=== PATIENT | female | born 1945 | race African-American/Black ===

== ENCOUNTER 2016-08-14 15:31 | Outpatient (CLI) | payer MEDICARE ==
[2016-08-14 17:39] LABS: Hemoglobin A1c 5.3 % (4.0-6.0)
[2016-08-14 17:47] LABS: Prothrombin Time 24.8 SEC (12.0-14.7)
== END 2016-08-14 15:32 | disposition home or self-care (01) ==
LOC: NAV LABSP 15:31
DX: I50.9 Heart failure, unspecified (principal); E11.9 Type 2 diabetes mellitus without complications
CPT/HCPCS: 83036; 85610